=== PATIENT | male | born 1980 | race Caucasian/White ===

== ENCOUNTER 2018-01-16 08:14 | Day surgery (SDC) | payer BC ==
[2018-01-15 11:53] VITALS: BMI 29.8
--- NOTE | 2018-01-16 10:54 | OP ---
Operative Note - Note: Operative Date: 01/16/18 Pre-Operative Diagnosis: right med/lat meniscal tears Operation: right knee arthroscopy with partial medial and lateral meniscectomy Post-Operative Diagnosis: Same as Pre-op Surgeon: Nathan Sethi Anesthesia: General Operative Report Dictated: Yes
[2018-01-16] MEDS ORDERED: PROPOFOL 20 ML ONE (11:00)
[2018-01-16] MEDS ORDERED: MIDAZOLAM HCL 2 MG/2 ML SINGLE DOSE VIAL ONE (11:00)
[2018-01-16] MEDS ORDERED: fentaNYL CITRATE 250 MCG/5 ML VIAL ONE (11:00)
[2018-01-16] MEDS ORDERED: BUPIVACAINE HCL/PF 2.5 MG/ML - 30 ML VIAL IJ ONE (11:20)
[2018-01-16] MEDS ORDERED: LIDOCAINE HCL/PF 2% SDV 5ML VIAL ONE (11:28)
[2018-01-16] MEDS ORDERED: ceFAZolin SODIUM 1 GM VIAL ONE (11:35)
[2018-01-16] MEDS ORDERED: DEXAMETHASONE SOD PHOSPHATE 4 MG/1 ML VIAL ONE (11:35)
[2018-01-16] MEDS ORDERED: ONDANSETRON 4 MG/2 ML VIAL ONE (11:35)
--- NOTE | 2018-01-16 12:37 | OP ---
DATE OF OPERATION: 01/16/2018 PREOPERATIVE DIAGNOSIS: Right knee medial and lateral meniscal tears. POSTOPERATIVE DIAGNOSIS: Right knee medial and lateral meniscal tears. PROCEDURE: Right knee arthroscopy with partial medial, partial lateral meniscectomy. SURGEON: Nathan Sethi MD ANESTHESIA: General. POSTOPERATIVE CONDITION: Stable. COMPLICATIONS: None. INDICATIONS: This is a pleasant 38-year-old gentleman who has been suffering from medial knee pain. MRI demonstrated medial meniscal tear. Treatment options including nonoperative versus operative management were reviewed. Operative risks were discussed in detail including bleeding, infection, neurovascular injury, need for further surgery, postoperative pain and stiffness, progression of osteoarthritis, persistent pain and stiffness. We reviewed medical risks such as heart attack, stroke, DVT, PE, and . I addressed all of the patient's questions and concerns. We reviewed the postoperative rehabilitation protocol. The patient voiced understanding and elected to proceed. DESCRIPTION OF PROCEDURE: The patient was brought to the operating room where general anesthesia was administered. The right lower extremity was examined demonstrating full range of motion, no effusion, and good ligamentous stability. The knee was then prepped and draped in the usual sterile fashion. A preoperative dose of antibiotics was given, and the usual antibiotics were administered. A time-out procedure was performed. The portal sites were now marked out and then injected subcutaneously with 0.25% Marcaine. A lateral portal was now establish using an 11 blade. The arthroscope was passed into the knee. Examination of the patellofemoral joint demonstrated no significant articular wear. Passing the arthroscope into the notch demonstrated intact ACL and PCL. The arthroscope was now passed into the medial compartment. Here, a tear of the posterior horn extending into the body was visualized. Medial portal was established under spinal needle localization. Utilizing meniscal biters as well as a shaver, this was debrided down to a stable base. The arthroscope was now passed into the lateral compartment. Here, there was a tear of the inner rim of the posterior horn of the meniscus. Again, utilizing the same techniques, this meniscus tear was debrided down to a stable base. Neither medial or lateral compartment demonstrated significant articular wear. The arthroscope was now used to withdraw all of the fluid from the knee, and it was withdrawn from the knee itself. Portals were sutured using 3-0 nylon. Sterile dressings were placed. The patient was transferred to the recovery room after extubated in stable condition. Nieves [id number]
[2018-01-16 13:18] VITALS: PULSE 67
[2018-01-16 14:01] VITALS: BP 129/88; TEMP 97.8
== END 2018-01-16 14:06 | disposition home or self-care (01) ==
LOC: FASU 08:14
PROVIDERS: ATTEND Orthopaedic Surgery Sports Medicine
PROC: 0SBC4ZZ Excision of Right Knee Joint, Percutaneous Endoscopic Approach (ICD-10-PCS; 2018-01-16)
PROC: 0SBC4ZZ Excision of Right Knee Joint, Percutaneous Endoscopic Approach (ICD-10-PCS; principal; 2018-01-16 11:42)
DX: S83.241A Other tear of medial meniscus, current injury, right knee, initial encounter (principal); S83.281A Other tear of lateral meniscus, current injury, right knee, initial encounter; X58.XXXA Exposure to other specified factors, initial encounter; Y93.9 Activity, unspecified; Y92.9 Unspecified place or not applicable
CPT/HCPCS: 94760